=== PATIENT | female | born 1990 | race Caucasian/White ===

== ENCOUNTER 2018-05-02 10:06 | Inpatient (IN) ==
[2018-05-02] MEDS ORDERED: CEFAZOLIN PREMIX (MC ONLY) 2 GM/50 ML BAG IV ONE (10:25)
[2018-05-02] MEDS ORDERED: FAMOTIDINE PB 20 MG/50 ML BAG IV ONE (10:25)
[2018-05-02] MEDS ORDERED: CITRIC ACID/SODIUM CITRATE 30ml PO ONE (10:25)
[2018-05-02] MEDS ORDERED: LR 1,000 ML IV SCH (10:30)
[2018-05-02 10:52] VITALS: BMI 29.9
--- OUTSIDE RECORDS SUMMARY | 2018-05-02 10:57 | External Medical Summary | Continuity of Care Document ---
:1990 Author Organization [facility] Address [address] [place] [address] [phone] Phone Allergies, Adverse Reactions, Alerts Substance Reaction Severity Status amoxicillin Hives Unknown Active CETIRIZINE HCL Hives Unknown Active Penicillins Hives Unknown Active Medications Medication Instructions Dosage Effective Dates Status Comments (start - stop) 27 mg-0.8 take 1 tablet by Not Available - Active mg tablet oral route every day Problems Condition Effective Dates (start - stop) Clinical Status Supervision of other high risk - pregnancies, third trimester Previous Low Transverse - 34 weeks gestation of - Supervision of other high risk - pregnancies, second trimester Previous Low Transverse - 20 weeks gestation of - Supervision of other high risk - pregnancies, second trimester Previous Low Transverse - 24 weeks gestation of - Supervision of other high risk - pregnancies, second trimester Previous Low Transverse - Other general symptoms and signs - 18 weeks gestation of - Supervision of other high risk - pregnancies, second trimester Other general symptoms and signs - 17 weeks gestation of - Supervision of other high risk - pregnancies, second trimester Previous Low Transverse - 18 weeks gestation of - Supervision of other high risk - pregnancies, second trimester Previous Low Transverse - Maternal care for excess growth, - second tri, unsp 16 weeks gestation of - Supervision of other high risk - pregnancies, third trimester Previous Low Transverse - 36 weeks gestation of - Supervision of other high risk - pregnancies, third trimester Previous Low Transverse - 32 weeks gestation of - Supervision of other high risk - pregnancies, third trimester Previous Low Transverse - 28 weeks gestation of - Previous Low Transverse - Encounter for suprvsn of normal - , third trimester 30 weeks gestation of - Previous Low Transverse - Matern care for oth or susp poor fetl - grth, third tri, unsp 28 weeks gestation of - Previous Low Transverse - Maternal care for excess growth, - second tri, unsp 20 weeks gestation of - Matern care for oth or susp poor fetl - grth, third tri, unsp 32 weeks gestation of - Placental Problem, NEC, Antepartum - Active Procedures Procedure Date Immuniz admnin, 1 vac, sngl/combo 19 Yrs + TDAP VACCINE >7 IM OB Visit No Charge Results Test Name Date and Time Measure Units Reference Range Abnormal Flag Comments Unknown Advance Directives Directive Yes / No Effective Date File Name Unknown Encounters Encounter Practice Location Reason(s) Diagnoses Date Provider Care Team Description For Visit Members [facility] Supervision of Jayne Referring In Womens other high risk 3-201 Pari. Provider: Health PA, pregnancies, 8 [address] [facility], 1522, trimesterPrevious Center [address] Transverse [place], C-Naxtygc94 weeks 120, [place], [id number], gestation of ROBYN [place], [place], [id number]. tel:[phone] tel: , [place]. [id number] tel: [phone] Pawel [place] Supervision of Kaleb-0 Jayne Referring In Womens other high risk 9-201 Pari. Provider: Shabana SMITH, pregnancies, 8 700 Pari [address] third Medical Jayne L, 1522, trimesterPrevious Center [address] [place], Low Transverse [facility] [place], C-Voaovet11 weeks 120, [place] [id number], gestation of [facility] 120, [place], [place], tel:[phone] [place], , [place]. [id number]. tel: tel: [phone] Pawel [place] Supervision of Jw-2 Jayne Referring In Womens other high risk 5-201 Pari. Provider: Shabana SMITH, pregnancies, 8 [address] third Medical [place], 1522, trimesterPrevious Center [address] [place], Low Transverse [place], C-Iyhmugo75 weeks 120, [place], [id number], gestation of [place], [place], [place], [id number]. tel:[phone] tel: , [place]. 0277802 tel: [phone] Pawel [place] Matern care for Jw-2 Jayne Referring In Womens Ultrasound oth or susp poor 5-201 Pari. Provider: Shabana SMITH, fetl gr, third 8 700 [address] PO Box tri, unsp32 weeks Medical [facility], 1522, gestation of Center [address] [place], [place], [place], 120, [place], [id number], [place], [place], [place], [id number]. tel: [phone] tel: , [place]. 7418938 tel: [phone] Pawel [place] Previous Low Jw-1 Jayne Referring In Womens Transverse 3-201 Pari. Provider: Shabana SMITH, C-SectionEncounte 8 700 Se PO Box r for suprvsn of [facility] M, 1522, normal , Center [address] [place], third [id number] [place], weeks gestation 120, [place], [id number], of [place], [place], [id number]. tel: tel: , [place]. 9714670 tel: [phone] [facility] Previous Low May-3 Jayne Referring In Womens Transverse 1-201 Pari. Provider: Health LUIS, C-SectionMatern 8 700 Se PO Box care for oth or Medical Rodriguez M, 1522, susp poor fetl Center [address] [place], third tri, [place], unsp28 weeks 120, [place], [id number], gestation of [place], [place], [id number]. tel: tel: , [place]. 4465950 tel: [phone] Pawel [place] Supervision of January-3 Jayne Referring In Womens Ultrasound other high risk 1-201 Pari. Provider: Health PA, pregnancies, 8 700 [address] PO Box third Medical [place] M, 1522, trimesterPrevious Center [address] [place], Low Transverse [place], C-Nyemfdg22 weeks 120, [place], [id number], gestation of [place], [place], [id number]. tel:[phone] tel: , [place]. 9184726 tel: [phone] Pawel [place] Supervision of May-0 Jayne Referring In Womens other high risk 3-201 Pari. Provider: Health PA, pregnancies, 8 700 Se PO Box second Medical [place] M, 1522, trimesterPrevious Center [address] [place], Low Transverse [place], C-Dwdfrnr08 weeks 120, [place], [id number], gestation of [place], [place], [id number]. tel:[phone] tel:+ , [place]. 8110040 tel: [phone] Pawel [place] Supervision of Apr-0 Jayne Referring In Womens other high risk 5-201 Pari. Provider: Health LUIS, pregnancies, 8 700 Se PO Box second [place] Rodriguez M, 1522, trimesterPrevious Center [address] Low Transverse [place], C-Ryfbfsg34 weeks 120, [place], [id number], gestation of [place], [place], [id number]. tel:[phone] tel: , [place]. 6010784 tel: [phone] [facility] Previous Low Apr-0 Cueva Referring In Womens Ultrasound Transverse 5-201 Deborah. Provider: Health LUIS, C-SectionMaternal 8 700 Se PO Box care for excess [place] Rodriguez M, 1522, growth, Center [address] [facility], [place], unsp20 weeks 120, [place], [id number], gestation of [place], [place], [id number]. tel: tel: , [place]. 9096974 tel: [phone] Pawel [place] Supervision of Mar-2 Jayne Referring In Womens other high risk 3-201 Pari. Provider: Health PA, pregnancies, 8 700 Se PO Box second [place] Rodriguez M, 1522, trimesterPrevious Center [address] Low Transverse [place], C-SectionOther 120, [place], [id number], general symptoms [place], [place], [place] and signs18 weeks [place], [id number]. tel: gestation of [phone] tel: , [place]. 1687896 tel: [phone] Pawel [place] Supervision of Mar-1 Jayne Referring In Womens other high risk 9-201 Pari. Provider: Health PA, pregnancies, 8 700 Se PO Box stephon Rodriguez M, 1522, trimesterPrevious Center [address] Low Transverse [place], C-Slaxklj76 weeks 120, [place], [id number], gestation of [place], [place], [id number]. tel: tel: , [place]. 4382846 tel: [phone] Pawel [place] Supervision of Nov- Jayne Referring In Womens other high risk 5-201 Pari. Provider: Health PA, pregnancies, 8 700 Se PO Box second Medical Rodriguez M, 1522, trimesterOther Center [address] [place], general symptoms [place], and signs17 weeks 120, [place], [id number], gestation of [place], [place], [id number]. tel: [phone] tel: , [place]. 4213809 tel: [phone] Pawel [place] Supervision of Mar-0 Jayne Referring In Womens other high risk 7-201 Pari. Provider: Health PA, pregnancies, 8 700 Se PO Box second Medical Rodriguez M, 1522, trimesterPrevious Center [address] [place], Low Transverse [place], C-SectionMaternal 120, [place], [id number], care for excess [place], [place], [place], [id number]. tel: second tri, [phone] tel: unsp16 weeks , [place]. 3674126 gestation of tel: [phone] Pawel [place] Jun-0 Jacklyn In Womens 7-201 Karley. Health LUIS, 3 700 PO [facility] [address], Ste [place], 120, [id number], [place], [place], tel:[phone] , [place]. tel: [phone] Pawel [place] Apr- Jayne In Womens 3-201 Pari. Health LUIS, 2 700 PO Box Medical [address], [address], Ste [place], 120, [id number], [place], [place], tel:[phone] , [place]. tel: [phone] Family History Family Member Diagnosis Age At Onset Maternal Grandfather Epilepsy Paternal Grandmother Diabetes mellitus Father Bipolar Disorder Sister Bipolar Disorder Paternal Grandmother Cancer, breast Immunizations Vaccine Date Status Comments Tdap completed Source: New Immunization Record Payers Payer name Insurance type Covered green party ID Authorization(s) [employer] - Medicaid [place] [id number] [employer] - Medicaid [place] [id number] Social History Type Description Quantity Date Captured Alcohol Use Details No Caffeine Use Details Unknown Tobacco Use Status Smoking Status Former smoker Vital Signs Date / Height Weight BMI Pulse Blood Temperature Respiratory Body Head BMI Time: Rate Pressure Rate Surface Circumference percentile Area 28.4 -2017 5 9:44 kg/m AM eter (2) 153.20 28.9 115/70 2018 lbs 4 mm[Hg] 9:59 kg/m AM eter (2) Chief Complaint And Reason For Visit Unknown Chief Complaint And Reason For Visit Reason For Referral Reason For Referral Unknown Plan Of Care Date Type Action Status Appointment Lisy Clarke BOOKED Appointment Lisy Clarke - [facility] [place] - RC/S BOOKED Future Order: Radiology Order Ultrasound OB Follow-up ([id number]) Ordered Future Order: Radiology Order Complete OB Ultrasound > 14 Weeks Ordered ([id number]) Future Order: Radiology Order Ultrasound OB Follow-up ([id number]) Ordered Date Type Problem Goal Intervention Status Start Date Unknown. History Of Present Illness Encounter Date Complaint History Of Present Illness This patient has no known history of present illness Functional Status Encounter Date Functional Assessment Cognitive Assessment Unknown Medications Administered Medication Instructions Dosage Effective Dates (start - stop) Status Comments Drug Treatment Unknown Instructions Date Instruction Additional Information Unknown
--- OUTSIDE RECORDS SUMMARY | 2018-05-02 10:57 | External Medical Summary | Continuity of Care Document ---
:1990 Author Organization [facility] Address [address] [place] [address] [phone] Phone Allergies, Adverse Reactions, Alerts Substance Reaction [...] Transverse - 28 weeks gestation of - Supervision of other high risk - pregnancies, third trimester Previous Low Transverse - 34 weeks gestation of - Previous Low Transverse [...] NEC, Antepartum - Active Procedures Procedure Date OB Visit No Charge Infct antign, chlamydia trac, ampl Neisseria Gonorrhea, Amplified DNA Results Test Name Date and Time Measure Units Reference Range Abnormal Flag Comments Panel Description: ABO Grouping and Rho(D) Typing ABO Grouping 13:31:00 B Rh Factor 13:31:00 Positive Please note: Prior records for this patient's ABO / Rh type are notavailable for additional verification. Panel Description: Rubella virus IgG Ab [Units/volume] in Serum or Plasma by Immunoassay Rubella Antibodies, 13:31:00 3.18 index Immune >0.99 IgG Non-immune <0.90 Equivocal 0.90 - 0.99 Immune >0.99 Panel Description: RPR, Rfx Qn RPR/Confirm TP RPR 13:31:00 Non Reactive Non Reactive Panel Description: Blood group antibody screen [Presence] in Serum or Plasma Antibody Screen 13:31:00 Negative Negative Panel Description: HBsAg Screen HBsAg Screen 13:31:00 Negative Negative Panel Description: Bacteria identified in Urine by Culture Urine Culture, 13:31:00 Final report Routine Result 1 13:31:00 Comment Culture shows less than 10,000 colony forming units of bacteria permilliliter of urine. This colony count is not generally consideredto be clinically significant. Panel Description: GC/CT Amplified Probe Chlamydia Trachomatis RNA, [facility] 13:31:46 Negative Negative N Neisseria Gonorrhoeae RNA, [facility] 13:31:46 Negative Negative N Advance Directives Directive Yes / No Effective Date File Name Unknown Encounters Encounter Practice Location Reason(s) Diagnoses Date Provider Care Team Description For Visit Members Pawel [place] Supervision of Jayne Referring In Womens other high risk 9-201 Pari. Provider: Shabana SMITH, pregnancies, 8 700 Pari PO Box [facility] L, 1522, trimesterPrevious Center [address] [facility] Frieda [place], C-Mgbvskq52 weeks 120, [place] , gestation of [facility] 120, [place], [place], tel: [phone] [place], , [place]. [id number]. tel: tel: [phone] Pawel [place] Supervision of Jayne Referring In Womens other high risk 5-201 Pari. Provider: Shabana SMITH, pregnancies, 8 [address] [facility] , 1522, trimesterPrevious Center [address], [address] [place], C-Cixdhve84 weeks 120, [place], [id number], gestation of [place], [place], [place], [id number]. tel: [phone] tel: , [place]. 3174551 tel: [phone] Pawel [place] Matern care for Jayne Referring In Womens Ultrasound oth or susp poor 5-201 Pari. Provider: Shabana SMITH, fetl gr, third 8 700 [address] PO Box tri, unsp32 weeks [facility], 1522, gestation of Center [address] [place], [place], 120, [place], [id number], [place], [place], [id number]. tel: tel: , [place]. 5738858 tel: [phone] [facility] Previous Low Jw-1 Jayne Referring In Womens Transverse 3-201 Pari. Provider: Health LUIS, C-SectionEncounte 8 700 Se PO Box r for suprvsn of Medical Rodriguez M, 1522, normal , Center [address] [place], third [id number] [place], weeks gestation 120, [place], [id number], of [place], [place], [place], [id number]. tel: tel: , [place]. 1003153 tel: [phone] [facility] Previous Low January-3 Jayne Referring In Womens Transverse 1-201 Pari. Provider: Health LUIS, C-SectionMatern 8 700 Se PO Box care for oth or Medical Rodriguez M, 1522, susp poor fetl Center [address] [facility], third tri, [place], unsp28 weeks 120, [place], [id number], gestation of [place], [place], [id number]. tel:[phone] tel: , [place]. 9053383 tel: [phone] Pawel [place] Supervision of January-3 Jayne Referring In Womens Ultrasound other high risk 1-201 Pari. Provider: Health PA, pregnancies, 8 700 Se PO Box third Medical Rodriguez M, 1522, trimesterPrevious Center [address] [place], Low Transverse [place], C-Unmttnw24 weeks 120, [place], [id number], gestation of [place], [place], [id number]. tel:[phone] tel: , [place]. 2793244 tel: [phone] Pawel [place] Supervision of May-0 Jayne Referring In Womens other high risk 3-201 Pari. Provider: Health PA, pregnancies, 8 700 [address] PO Box second Medical Rodriguez M, 1522, trimesterPrevious Center [address] Transverse [place], C-Iptehkm67 weeks 120, [place], [id number], gestation of [place], [place], [place], [id number]. tel:[phone] tel: , [place]. 4418133 tel: [phone] Pawel [place] Supervision of Apr-0 Jayne Referring In Womens other high risk 5-201 Pari. Provider: Health PA, pregnancies, 8 700 Se PO Box second Medical Rodriguez M, 1522, trimesterPrevious Center [address] Transverse [place], C-Bnzqlhe49 weeks 120, [place], [id number], gestation of [place], [place], [place], [id number]. tel: tel: , [place]. 4368613 tel: [phone] Pawel [place] Previous Justin Apr-0 Cueva Referring In Womens Ultrasound Transverse 5-201 Deborah. Provider: Health LUIS, C-SectionMaternal 8 700 Se PO Box care for excess Medical Rodriguez M, 1522, growth, Center [address] [place], stephon tri, [place], unsp20 weeks 120, [place], [id number], gestation of [place], [place], [place], [id number]. tel: tel: , [place]. 3776977 tel: [phone] Pawel [place] Supervision of Mar-2 Jayne Referring In Womens other high risk 3-201 Pari. Provider: Health PA, pregnancies, 8 700 Se PO Box second [facility] M, 1522, trimesterPrevious Center [address] Low Transverse [place], C-SectionOther 120, [place], [id number], general symptoms [place], [place], [place] and signs18 weeks [place], [id number]. tel: gestation of [id number] tel: , [place]. 5742992 tel:[phone] Pawel [place] Supervision of Mar-1 Jayne Referring In Womens other high risk 9-201 Pari. Provider: Health PA, pregnancies, 8 700 Se PO Box [facility] M, 1522, trimesterPrevious Center [address] [place], Low Transverse [place], C-Obnalaq72 weeks 120, [place], [id number], gestation of [place], [place], [id number]. tel: tel: , [place]. 9895525 tel:[phone] Pawel [place] Supervision of Mar-1 Jayne Referring In Womens other high risk 5-201 Pari. Provider: Health PA, pregnancies, 8 700 Se PO Box [facility], 1522, trimesterOther Center [address] [place], general symptoms [place], and signs17 weeks 120, [place], [id number], gestation of [place], [place], [id number]. tel: tel: , US. 6080064 tel: [phone] Pawel [place] Supervision of Mar-0 Jayne Referring In Womens other high risk 7-201 Pari. Provider: Health PA, pregnancies, 8 700 Se PO Box [facility], 1522, trimesterPrevious Center [address] [place], Low Transverse [place], C-SectionMaternal 120, [place], [id number], care for excess [place], [place], [place], [place], [id number]. tel: second tri, [phone] tel: unsp16 weeks , US. 4277495 gestation of tel: [phone] [facility] Oct-0 Jacklyn In Womens 7-201 Karley. Health PA, 3 700 PO [facility] [address], [address] [place], 120, [id number], [place], [place], tel:901 , [place]. tel: [phone] Pawel [place] Jayne In [facility] 3-201 [facility], 2 700 PO [facility] [address], [place] [address] Jennifer, [facility] [place], 120, [id number], [place], [place], tel:[phone] , [place]. tel: [phone] Family History Family Member Diagnosis Age At Onset Maternal Grandfather Epilepsy Paternal Grandmother Diabetes mellitus Father Bipolar Disorder Sister Bipolar Disorder Paternal Grandmother Cancer, breast Immunizations Vaccine Date Status Comments Tdap completed Source: New Immunization Record Payers Payer name Insurance type Covered democrat ID Authorization(s) [employer] - Medicaid [place] [id number] [employer] - Medicaid [place] [id number] Social History Type Description Quantity Date Captured Alcohol Use Details No Caffeine Use Details Unknown Tobacco Use Status Smoking Status Former smoker Vital Signs Date / Height Weight BMI Pulse Blood Temperature Respiratory Body Head BMI Time: Rate Pressure Rate Surface Circumference percentile Area 150.60 28.4 lbs 5 mm[Hg] 1:15 kg/m PM eter (2) Chief Complaint And Reason For Visit Unknown Chief Complaint And Reason For Visit Reason For Referral Reason For Referral Unknown Plan Of Care Date Type Action Status Appointment Lisy Clarke BOOKED Appointment Lisy Clarke - [facility] [place] - RC/S BOOKED Future Order: Radiology Order Ultrasound OB Follow-up ([id number]) Ordered Future Order: Radiology Order Complete OB Ultrasound > 14 Weeks Ordered ([id number]) Future Order: Radiology Order Ultrasound OB Follow-up ([id number]) Ordered Date Type Problem Goal Intervention Status [...]
--- OUTSIDE RECORDS SUMMARY | 2018-05-02 10:57 | External Medical Summary ---
:1990 Author Organization [facility] Address [address] [place] [address] Care Team Providers Name Role Phone STEFANY ASH Unavailable Unavailable PROBLEMS Unknown Problems ALLERGIES Substance Reaction Event Type Date Status Sulfacet-R Unknown Drug Allergy Aug, Active Penicillin G Benzathine Unknown Drug Allergy Aug, Active Amoxicillin Unknown Drug Allergy Aug, Active zyrtec Unknown Non Drug Allergy Aug, Active ENCOUNTERS Encounter Location Date Diagnosis [facility] [address] Sep, Possible Z32.00 CLINIC [id number] [place] [address] [facility] [address] Aug, Dental caries on smooth CLINIC [id number] surface penetrating into [place], [place] pulp K02.63 [id number] [facility] [address] 27 Jul, 2017 Dental caries on smooth CLINIC [id number] surface penetrating into [place], [place] pulp K02.63 [id number] [facility] [address] 17 Jul, 2017 Dental examination Z01.20 CLINIC [id number] [address] IMMUNIZATIONS No Known Immunizations SOCIAL HISTORY Never Assessed REASON FOR VISIT TE PLAN OF CARE Activity Details Follow Up MUNDO/prophy Reason: VITAL SIGNS Heart Rate 86 bpm 2017-08-31 Blood pressure systolic 114 mmHg 2017-08-31 Blood pressure diastolic 81 mmHg 2017-08-31 MEDICATIONS Medication Instructions Dosage Frequency Start End Duration Status Date Date Lucile 7.5-325 Orally with food 1 tablet as 6h 3 days Not-Takin MG every 6 hrs needed for g pain Lucile 7.5-325 Orally with food 1 tablet as 6h 3 days Active MG every 6 hrs needed for pain Lucile 7.5-325 Orally every 4-6 1 tablet Not-Takin MG hours as needed g Cephalexin 500 Orally every 12 1 tablet 12h Not-Takin MG hrs g Clindamycin HCl Orally every 8 1 capsules 8h 10 days Not-Takin 150 MG hrs g Ibuprofen 200 Orally Three 1 tablet 8h Not-Takin MG times a day with food g or milk as needed RESULTS No Results PROCEDURES Procedure Date Ordered Result Body Site EXTRAC ERUPTED TOOTH/EXPOSED ROOT Aug 31, 2017 EXTRAC ERUPTED TOOTH/EXPOSED ROOT Aug 31, 2017 INSTRUCTIONS MEDICATIONS ADMINISTERED No Known Medications
--- OUTSIDE RECORDS SUMMARY | 2018-05-02 10:57 | External Medical Summary | Continuity of Care Document ---
:1990 Author Organization [facility] Address [address] [place], [place] [id number] Phone Allergies, Adverse Reactions, Alerts Substance Reaction Severity Status amoxicillin Hives Unknown Active CETIRIZINE HCL Hives Unknown Active Penicillins Hives Unknown Active Medications Medication Instructions Dosage Effective Dates Status Comments (start - stop) 27 mg-0.8 take 1 tablet by Not Available - Active mg tablet oral route every day Problems Condition Effective Dates (start - stop) Clinical Status Matern care for oth or susp poor fetl - grth, third tri, unsp 32 weeks gestation of - Supervision of [...] pregnancies, third trimester Previous Low Transverse - 38 weeks gestation of - Supervision of other high risk - pregnancies, third trimester Previous Low Transverse - 28 weeks gestation of - Supervision of other high risk - pregnancies, third trimester Previous Low Transverse - 34 weeks gestation of - Previous Low Transverse - 37 weeks gestation of - Previous Low Transverse - Encounter for suprvsn of normal - , third trimester 30 weeks gestation of - Previous Low Transverse - Matern care for oth or susp poor fetl - grth, third tri, unsp 28 weeks gestation of - Previous Low Transverse - Maternal care for excess growth, - second tri, unsp 20 weeks gestation of - Placental Problem, NEC, Antepartum - Active Procedures Procedure Date Ultrasnd preg uterus, flwup/repeat Results Test Name Date and Time Measure Units Reference Range Abnormal Flag Comments Unknown Advance Directives Directive Yes / No Effective Date File Name Unknown Encounters Encounter Practice Location Reason(s) Diagnoses Date Provider Care Team Description For Visit Members Pawel Mathur Supervision of Jayne Referring In Womens other high risk 6-201 Pari. Provider: Health PA, pregnancies, [address] third Medical Rodriguez M, 1522, trimesterPrevious Center [address], [place], C-Jqhrjcx09 weeks 120, [place], [id number], gestation of [place], [place], [place], [id number]. tel:[phone] tel: , [place]. 0578257 tel: [phone] Pawel Mathur Previous Low Mar-3 Rizo Referring In Womens Transverse 0-201 Pavithra. Provider: Health LUIS, C-Nzirnyu91 weeks 8 [address] PO Box gestation of [facility] M, 1522, Center [address] Jennifer, [place], [place], 120, [place], [id number], [place], [place], [id number]. tel: [phone] tel: , [place]. [id number] tel: [phone] Pawel Mathur Supervision of Mar-2 Jayne Referring In Womens other high risk 3-201 Pari. Provider: Health PA, pregnancies, 8 [address] PO Box [facility] M, 1522, trimesterPrevious Center [address] [place], Low Transverse [place], [place], C-Rgzwceg00 weeks 120, [place], [id number], gestation of [place], [place], [place], [id number]. tel:[phone] tel: , [place]. [id number] tel: [phone] Pawel Mathur Supervision of Kaleb-0 Jayne Referring In Womens other high risk 9-201 Pari. Provider: Health PA, pregnancies, 8 700 Pari PO Box [facility] L, 1522, trimesterPrevious Center [address] [place], Low Transverse [facility], C-Gtlwunt51 weeks 120, Center [id number], gestation of [facility] 120, [place], [place], tel:[phone] [place], , [place]. [id number]. tel: tel: [phone] Associates [facility] Supervision of Jw-2 Jayne Referring In Womens other high risk 5-201 Pari. Provider: Health PA, pregnancies, 8 [address] PO Box [facility] M, 1522, trimesterPrevious Center [address] [place], Low Transverse [place], C-Odsseeg85 weeks 120, [place], [id number], gestation of [place], [place], [id number]. tel: tel: , [place]. 1707547 tel: [phone] Pawel Mathur Matern care for Jw-2 Jayne Referring In Womens Ultrasound oth or susp poor 5-201 Pari. Provider: Health LUIS, fetl thee, third 8 [address] PO Box tri, unsp32 weeks Medical Rodriguez M, 1522, gestation of Center [address] [place], [place], 120, [place], [id number], [place], [id number]. tel: tel: , [place]. 5446423 tel: [phone] Pawel Mathur Previous Low Jw-1 Jayne Referring In Womens Transverse 3-201 Pari. Provider: Shabana SMITH C-SectionEncounte 8 700 Se PO Box r for suprvsn of Medical Byron M, 1522, normal , Center [address] [place], third oxlqtszci00 [place], weeks gestation 120, [place], [id number], of [place], [place], [place], [id number]. tel:[phone] tel: , [place]. 8690341 tel: [phone] Pawel Mathur Previous Low January-3 Jayne Referring In Womens Transverse 1-201 Pari. Provider: Shabana SMITH C-SectionMatern 8 700 Se PO Box care for oth or Medical Rodriguez M, 1522, susp poor fetl Center [address], third tri, [place], unsp28 weeks 120, [place], [id number], gestation of [place], [place], [id number]. tel:[phone] tel: , US. [id number] tel: [phone] Pawel Mathur Supervision of January-3 Jayne Referring In Womens Ultrasound other high risk 1-201 Pari. Provider: Health PA, pregnancies, 8 700 [address] PO Box third Medical Michael M, 1522, trimesterPrevious Center [address] Low Transverse [place], C-Ijsnypt33 weeks 120, [place], [id number], gestation of [place], [place], [id number]. tel:[phone] tel: , [place]. [id number] tel: [phone] Pawel Mathur Supervision of May-0 Jayne Referring In Womens other high risk 3-201 Pari. Provider: Shabana PA, pregnancies, 8 [address] Box second Frieda Calles, 1522, trimesterPrevious Center [address] Low Transverse [place], C-Pjmaliu57 weeks 120, [place], [id number], gestation of [place], [place], [id number]. tel:[phone] tel: , [place]. [id number] tel: [phone] Pawel Mathur Supervision of Apr-0 Jayne Referring In Womens other high risk 5-201 Pari. Provider: Shabana SMITH, pregnancies, 8 700 [address] PO Box second Frieda Rodriguez M, 1522, trimesterPrevious Center [address] Low Transverse [place], C-Oihknwp12 weeks 120, [place], [id number], [place], [id number]. tel: tel: , [place]. 6658796 tel: [phone] Pawel Mathur Previous Low Apr-0 Cueva Referring In Womens Ultrasound Transverse 5-201 Deborah. Provider: Health LUIS, C-SectionMaternal 8 700 Se PO Box care for excess Medical Michael M, 1522, growth, Center [address] [place], stephon tri, [place], unsp20 weeks 120, [place], [id number], gestation of [place], [place], [id number]. tel:[phone] tel: , [place]. 1327812 tel: [phone] Pawel Mathur Supervision of Mar-2 Jayne Referring In Womens other high risk 3-201 Pari. Provider: Health PA, pregnancies, 8 700 Se PO Box second Medical Rodriguez M, 1522, trimesterPrevious Center [address] Transverse [place], C-SectionOther 120, [place], [id number], general symptoms ROB[place], [place] and signs18 weeks [place], [id number]. tel: gestation of [phone] tel: , US. 4303089 tel: [phone] Pawel Mathur Supervision of Mar-1 Jayne Referring In Womens other high risk 9-201 Pari. Provider: Health PA, pregnancies, 8 700 Se PO Box second [facility] M, 1522, trimesterPrevious Center [address] Transverse [place], C-Uqevepk17 weeks 120, [place], [id number], gestation of [place], [place], [id number]. tel:[phone] tel: , US. 4645640 tel: [phone] Pawel Mathur Supervision of Mar-1 Jayne Referring In Womens other high risk 5-201 Pari. Provider: Health PA, pregnancies, 8 700 Se PO [facility], trimesterOther Center [address] [place], general symptoms [place], and signs17 weeks 120, [place], [id number], gestation of ROBYN [place], [place], [id number]. tel:[phone] tel: , US. 6027421 tel: [phone] Pawel Mathur Supervision of Mar-0 Jayne Referring In Womens other high risk 7-201 Pari. Provider: Health PA, pregnancies, 8 700 Se PO Box second Medical Rodriguez M, 1522, trimesterPrevious Center [address] Transverse [place], C-SectionMaternal 120, [place], [id number], care for excess [place], [place], [place], [place], [id number]. tel: second tri, [phone] tel: unsp16 weeks , [place]. [id number] gestation of tel: [phone] [facility] Jun-0 Jacklyn In Womens 7-201 Karley. [facility], 3 700 PO [facility] [address] Jennifer, [place], 120, [id number], [facility] [place], tel:[phone] , [place]. tel: [phone] Pawel Mathur Apr- Jayne In Womens 3-201 Pari. [facility], 2 700 PO Box Medical [address] Jennifer, [place], 120, [id number], [facility] [place], tel:[phone] , [place]. tel: [phone] Family History Family Member Diagnosis Age At Onset Maternal Grandfather Epilepsy Paternal Grandmother Diabetes mellitus Father Bipolar Disorder Sister Bipolar Disorder Paternal Grandmother Cancer, breast Immunizations Vaccine Date Status Comments Tdap completed Source: New Immunization Record Payers Payer name Insurance type Covered green party ID Authorization(s) [employer] - Medicaid [place] [id number] [employer] - Medicaid [place] [id number] Social History Type Description Quantity Date Captured Unknown Vital Signs Date / Height Weight BMI Pulse Blood Temperature Respiratory Body Head BMI Time: Rate Pressure Rate Surface Circumference percentile Area Unknown Chief Complaint And Reason For Visit Unknown Chief Complaint And Reason For Visit Reason For Referral Reason For Referral Unknown Plan Of Care Date Type Action Status Appointment Lisy Clarke - [facility] [place]OOK[place] Appointment Lisy Clarke BOOKED Future Order: Radiology Order Ultrasound OB Follow-up ([id number]) Ordered Future Order: Radiology Order Ultrasound OB Follow-up ([id number]) Ordered Future Order: Radiology Order Complete OB Ultrasound > 14 Weeks Ordered ([id number]) Date Type Problem Goal Intervention Status Start [...]
--- OUTSIDE RECORDS SUMMARY | 2018-05-02 10:57 | External Medical Summary ---
:1990 Author Organization [facility] Address [address] [place] [address] Care Team Providers Name Role Phone STEFANY ASH Unavailable Unavailable PROBLEMS Unknown Problems ALLERGIES Substance Reaction Event Type Date Status Sulfacet-R Unknown Drug Allergy Jul, Active Penicillin G Benzathine Unknown Drug Allergy Jul, Active Amoxicillin Unknown Drug Allergy Jul, Active zyrtec Unknown Non Drug Allergy Jul, Active ENCOUNTERS Encounter Location Date Diagnosis [facility] [address] 11 Sep, 2017 Possible Z32.00 CLINIC [id number] [address] [facility] [address] Aug, Dental caries on smooth CLINIC [id number] surface penetrating into [place], [place] pulp K02.63 [address] [facility] [address] 27 Jul, 2017 Dental caries on smooth CLINIC [id number] surface penetrating into [place], [place] pulp K02.63 [address] [facility] [address] 17 Jul, 2017 Dental examination Z01.20 CLINIC [id number] [place] [address] IMMUNIZATIONS No Known Immunizations SOCIAL HISTORY Never Assessed REASON FOR VISIT TE PLAN OF CARE Activity Details Follow Up Multi TE 45 mins Reason: VITAL SIGNS Heart Rate 96 bpm 2017-08-16 Blood pressure systolic 101 mmHg 2017-08-16 Blood pressure diastolic 69 mmHg 2017-08-16 MEDICATIONS Medication Instructions Dosage Frequency Start End Duration Status Date Date Sherman 7.5-325 Orally with food 1 tablet as 6h 3 days Active MG every 6 hrs needed for pain Clindamycin HCl Orally every 8 1 capsules 8h 10 days Not-Takin 150 MG hrs g Sherman 7.5-325 Orally every 4-6 1 tablet Not-Takin MG hours as needed g Cephalexin 500 Orally every 12 1 tablet 12h Not-Takin MG hrs g Ibuprofen 200 Orally Three 1 tablet 8h Not-Takin MG times a day with food g or milk as needed RESULTS No Results PROCEDURES Procedure Date Ordered Result Body Site EXTRAC ERUPTED TOOTH/EXPOSED ROOT Aug 16, 2017 INSTRUCTIONS MEDICATIONS ADMINISTERED No Known Medications
--- OUTSIDE RECORDS SUMMARY | 2018-05-02 10:57 | External Medical Summary | Continuity of Care Document ---
:1990 Author Organization [facility] Address [address] [place] [phone] Phone Allergies, Adverse Reactions, Alerts Substance Reaction [...] tri, unsp 16 weeks gestation of - Previous Low Transverse [...] Team Description For Visit Members Pawel Mathur Previous Low Jayne Referring In Womens Transverse 3-201 Pari. Provider: Shabana SMITH C-SectionEncounte 8 700 Se PO Box r for suprvsn of Medical Michael M, 1522, normal , Center [address] [place], third xozmicrdq68 [place], weeks gestation 120, [facility] [place], [id number], of [place], [place], [place], [id number]. tel: [phone] tel: , . [id number] tel: [phone] Pawel Mathur Previous Low January- Jayne Referring In Womens Transverse 1-201 Pari. Provider: Barry Dalal-SectionMatern 8 700 Se PO Box care for oth or Medical Rodriguez M, 1522, susp poor fetl Center [address] [place], [facility], third tri, [place], unsp28 weeks 120, [facility] [place], [id number], gestation of [place], [place], [place], [id number]. tel: [phone] tel: , . [id number] tel: [phone] Pawel Mathur Supervision of January-3 Jayne Referring In Womens Ultrasound other high risk 1-201 Pari. Provider: Health PA, pregnancies, 8 700 Se PO Box third Frieda Rodriguez M, 1522, trimesterPrevious Center [address] Low Transverse [place], C-Tcgbyle60 weeks 120, [facility] [place], [id number], gestation of [place], [place], [id number]. tel:[phone] tel: , [place]. 9829195 tel: [phone] Pawel Mathur Supervision of May-0 Jayne Referring In Womens other high risk 3-201 Pari. Provider: Health PA, pregnancies, 8 700 [address] PO Box second Frieda Calles, 1522, trimesterPrevious Center [address] [place], Low Transverse [place], C-Qtbckbs19 weeks 120, [facility] [place], [id number], gestation of [place], [place], [id number]. tel: tel: , [place]. 9199172 tel: [phone] Pawel Mathur Supervision of Apr-0 Jayne Referring In Womens other high risk 5-201 Pari. Provider: Shabana PA, pregnancies, 8 700 Se PO Box second Medical Michael M, 1522, trimesterPrevious Center [address] Low Transverse [place], C-Jqlqkha11 weeks 120, [facility] [place], [id number], gestation of [place], [place], [address]. tel: tel: , [place]. 2302886 tel: [phone] Pawel Mathur Previous Low Apr-0 Cueva Referring In Womens Ultrasound Transverse 5-201 Deborah. Provider: Health LUIS, C-SectionMaternal 8 700 Se PO Box care for excess Medical Michael M, 1522, growth, Center [address] [place], [address], [place], [place], unsp20 weeks 120, [facility] [place], [id number], gestation of [place], [place], [id number]. tel:[phone] tel: , [place]. 5098248 tel: [phone] Pawel Mathur Supervision of Mar-2 Jayne Referring In Womens other high risk 3-201 Pari. Provider: Health PA, pregnancies, 8 700 Se PO Box second Medical Rodriguez M, 1522, trimesterPrevious Center [address] Transverse [place], C-SectionOther 120, [facility] [place], [id number], general symptoms ROB[place], [place] and signs18 weeks [place], [id number]. tel: gestation of [id number] tel: , US. 7014323 tel: [phone] Pawel Mathur Supervision of Mar-1 Jayne Referring In Womens other high risk 9-201 Pari. Provider: Health PA, pregnancies, 8 700 Se PO Box second Medical Rodriguez M, 1522, trimesterPrevious Center [address], [place], [place], C-Zjkdgfm19 weeks 120, [facility] [place], [id number], gestation of [place], [place], [address]. tel:[phone] tel: , [place]. 1377135 tel: [phone] Pawel Mathur Supervision of Mar-1 Jayne Referring In Womens other high risk 5-201 Pari. Provider: Health PA, pregnancies, 8 700 [address] PO Box second Medical Rodriguez M, 1522, trimesterOther Center [address] [place], general symptoms [place], and signs17 weeks 120, [facility] [place], [id number], gestation of ROB[place], [place], [address]. tel:[phone] tel: , [place]. 5537113 tel: [phone] Pawel Mathur Supervision of Mar-0 Jayne Referring In Womens other high risk 7-201 Pari. Provider: Health PA, pregnancies, 8 700 Se PO Box second Medical Rodriguez M, 1522, trimesterPrevious Center [address] [place], Low Transverse [place], C-SectionMaternal 120, [facility] [place], [id number], care for excess [place], [place], [place], [place], [address]. tel: second tri, [id number] tel: unsp16 weeks , [place]. 9844420 gestation of tel: [phone] [facility] Jun-0 Jacklyn In Womens 7-201 Karley. [facility], 3 700 PO [facility] [address], [address] Jennifer, [facility] [place], 120, [id number], [facility] [place], tel:[phone] , [place]. tel: [phone] Associates [facility] Apr- Jayne In Womens 3-201 Pari. [facility], 2 700 PO [facility] [address], [address] Jennifer, [place], 120, [id number], [facility] [place], tel:[phone] , [place]. tel: [phone] Family History Family Member Diagnosis Age At Onset Maternal Grandfather Epilepsy Paternal Grandmother Diabetes mellitus Father Bipolar Disorder Sister Bipolar Disorder Paternal Grandmother Cancer, breast Immunizations Vaccine Date Status Comments Unknown Payers Payer name Insurance type Covered constitution party ID Authorization(s) [employer] - Medicaid MC [id number] Social History Type Description Quantity Date Captured [...] Appointment Lisy Clarke BOOKED Appointment Lisy Clarke BOOKED Appointment Lisy Clarke - [facility] [place] BOOK[place] Future Order: Radiology Order Ultrasound OB Follow-up ([id number]) Ordered Future Order: Radiology Order Complete OB Ultrasound > 14 Weeks Ordered ([id number]) Date Type Problem Goal Intervention Status Start [...]
--- OUTSIDE RECORDS SUMMARY | 2018-05-02 10:57 | External Medical Summary | Continuity of Care Document ---
:1990 Author Organization [facility] Address [address] [place] [phone] Phone Allergies, Adverse Reactions, Alerts Substance Reaction Severity Status amoxicillin Hives Unknown Active CETIRIZINE HCL Hives Unknown Active Penicillins Hives Unknown Active Medications Medication Instructions Dosage Effective Dates Status Comments (start - stop) ProAir HFA 90 inhale 2 puff by - Active mcg/actuation aerosol inhalation route inhaler every 4 - 6 hours as needed Mucinex D 60 mg-600 take 1 tablet by Not Available - Active mg tablet,extended oral route every release 12 hours as needed oseltamivir 75 mg take 1 capsule by 75 MG - Active capsule oral route 2 times every day 27 mg-0.8 mg take 1 tablet by Not Available - Active tablet oral route every day Tylenol 325 mg tablet take 3 tablet by 975 MG - Active ORAL route every 4 days as needed Zofran ODT 4 mg take 1 by Oral Not Available - Active disintegrating tablet route every 6 hours as needed for nausea Problems Condition Effective Dates (start - stop) [...] Procedures Procedure Date OB Visit No Charge Results Test Name Date and Time Measure Units Reference Range Abnormal Flag Comments Unknown Advance Directives Directive Yes / No Effective Date File Name Unknown Encounters Encounter Practice Location Reason(s) Diagnoses Date Provider Care Team Description For Visit Members Pawel Mathur Supervision of Dec-0 Jayne Referring In Womens other high risk 5-201 Pari. Provider: Shabana SMITH, pregnancies, 8 [address] Box second Medical Rodriguez M, 1522, trimesterPrevious Center [address] [place], Low Transverse [place], C-Virgawq11 weeks 120, [place], [id number], gestation of [place], [place], [place], [id number]. tel: [phone] tel: , [place]. 8023027 tel: [phone] Pawel Mathur Previous Low Apr-0 Cueva Referring In Womens Ultrasound Transverse 5-201 Deborah. Provider: Shabana SMITH, C-SectionMaternal 8 700 Se PO Box care for excess Medical Rodriguez M, 1522, growth, Center [address] [place], second leticia, [place], unsp20 weeks 120, [place], [id number], gestation of [place], [place], [place], [id number]. tel: [phone] tel: , [place]. 3901391 tel: [phone] Pawel Mathur Supervision of Nov- Jayne Referring In Womens other high risk 3-201 Pari. Provider: Shabana SMITH, pregnancies, 8 700 Se PO Box second Medical Rodriguez M, 1522, trimesterPrevious Center [address] Low Transverse [place], C-SectionOther 120, [place], [id number], general symptoms [place], [place] and signs18 weeks [place], [id number]. tel: gestation of [id number] tel: , [place]. 9530730 tel: [phone] Pawel Mathur Supervision of Mar-1 Jayne Referring In Womens other high risk 9-201 Pari. Provider: Health PA, pregnancies, 8 700 Se PO Box second Medical Rodriguez M, 1522, trimesterPrevious Center [address] [place], Low Transverse [place], C-Llsewvm78 weeks 120, [place], [id number], gestation of [place], [place], [id number]. tel:[phone] tel: , [place]. 9679809 tel: [phone] Pawel Mathur Mar-1 Jayne In Womens 5-201 Pari. Health PA, 8 700 PO [facility] [address], Center [place], [place], 120, [id number], [place], [place], tel:[phone] , [place]. tel: [phone] Pawel Mathur Supervision of Mar-1 Jayne Referring In Womens other high risk 5-201 Pari. Provider: Health PA, pregnancies, 8 700 Se PO Box second Medical [place] M, 1522, trimesterOther Center [address] [place], general symptoms [place], and signs17 weeks 120, [place], [id number], gestation of ROBYN [place], [place], [id number]. tel:[phone] tel: , [place]. 3287197 tel: [phone] Pawel Mathur Supervision of Mar-0 Jayne Referring In Womens other high risk 7-201 Pari. Provider: Health PA, pregnancies, 8 700 Se PO Box second Medical Rodriguez M, 1522, trimesterPrevious Center [address] Low Transverse [place], C-SectionMaternal 120, [place], [id number], care for excess [place], [place], [place], [place], [id number]. tel: second tri, [id number] tel: unsp16 weeks , [place]. 5489570 gestation of tel: [phone] [facility] Jun-0 Jacklyn In Womens 7-201 Karley. [facility], 3 700 [address] Medical [address] Jennifer, [place], 120, [id number], [facility] [place], tel:[phone] , [place]. tel: [phone] Associates [facility] Apr- Jayne In Womens 3-201 Pari. [facility], 2 700 [address] Box Medical [address] Jennifer, [place], 120, [id number], [facility] [place], tel: [phone] [address] , [place]. tel: [phone] Family History Family Member Diagnosis Age At Onset Maternal Grandfather Epilepsy Paternal Grandmother Diabetes mellitus Father Bipolar Disorder Sister Bipolar Disorder Paternal Grandmother Cancer, breast Immunizations Vaccine Date Status Comments Unknown Payers Payer name Insurance type Covered constitution party ID Authorization(s) [employer] - Medicaid MC [id number] Social History Type Description Quantity Date Captured Alcohol Use Details No Caffeine Use Details Unknown Tobacco Use Status Smoking Status Former smoker Vital Signs Date / Height Weight BMI Pulse Blood Temperature Respiratory Body Head BMI Time: Rate Pressure Rate Surface Circumference percentile Area 9 3:32 kg/m PM eter (2) 125.90 23.7 116/68 2018 lbs 9 mm[Hg] 3:38 kg/m PM eter (2) Chief Complaint And Reason For Visit Unknown Chief Complaint And Reason For Visit Reason For Referral Reason For Referral Unknown Plan Of Care Date Type Action Status Appointment Taryn Clarke BOOKED Future Order: Radiology Order Complete OB Ultrasound > 14 Weeks Ordered ([id number]) Date Type Problem Goal Intervention Status Start [...]
--- OUTSIDE RECORDS SUMMARY | 2018-05-02 10:57 | External Medical Summary ---
:1990 Author Organization [facility] Address [address] [place] [address] Care Team Providers Name Role Phone VAIBHAV ACUNA Unavailable Unavailable PROBLEMS Unknown Problems ALLERGIES No Information ENCOUNTERS Encounter Location Date Diagnosis [facility] [address] 11 Sep, 2017 Possible Z32.00 CLINIC [id number] [address] [facility] [address] 12 Aug, 2017 Dental caries on smooth CLINIC [id number] surface penetrating into [place], [place] pulp K02.63 [id number] [facility] [address] 27 Jul, 2017 Dental caries on smooth CLINIC [id number] surface penetrating into [place], [place] pulp K02.63 [id number] [facility] [address] 17 Jul, 2017 Dental examination Z01.20 CLINIC [id number], [place] [address] IMMUNIZATIONS No Known Immunizations SOCIAL HISTORY Never Assessed REASON FOR VISIT test (walk-in)- [facility] PLAN OF CARE VITAL SIGNS MEDICATIONS Unknown Medications RESULTS Name Result Date Reference Range TEST, URINE (IN HOUSE) 2017-09-30 RESULTS POS Lot # [id number] Control pos Exp date 12/18/2018 PROCEDURES Procedure Date Ordered Result Body Site URINE TEST Sep 30, 2017 INSTRUCTIONS MEDICATIONS ADMINISTERED No Known Medications
--- OUTSIDE RECORDS SUMMARY | 2018-05-02 10:57 | External Medical Summary | Continuity of Care Document ---
:1990 Author Organization [facility] Address [address] [place] [address] [phone] Phone Allergies, Adverse Reactions, Alerts Substance Reaction Severity Status amoxicillin Hives Unknown Active CETIRIZINE HCL Hives Unknown Active Penicillins Hives Unknown Active Medications Medication Instructions Dosage Effective Dates Status Comments (start - stop) 27 mg-0.8 take 1 tablet by Not Available - Active mg tablet oral route every day Problems Condition Effective Dates (start - stop) Clinical Status Previous Low Transverse - Matern care for oth or susp poor fetl - grth, third tri, unsp 28 weeks gestation of - Supervision of [...] Referring In Womens Transverse 3-201 Pari. Provider: Barry Dalal-SectionEncounte 8 [address] PO Box r for suprvsn of Medical Michael M, 1522, normal , Center [address] [place], third kwpyiznoj49 [place], weeks gestation 120, [place], [id number], [place], [place], [id number]. tel: [phone] tel: , . [id number] tel: [phone] Pawel Mathur Previous Low Jayne Referring In Womens Transverse 1-201 Pari. Provider: Shabana SMITH C-SectionMatern 8 700 Se PO Box care for oth or Medical Michael M, 1522, susp poor fetl Center [address], third tri, [place], unsp28 weeks 120, [place], [id number], gestation of [place], [place], [place], [id number]. tel: [phone] tel: , [place]. 7453105 tel: [phone] Pawel Mathur Supervision of May-3 Jayne Referring In Womens Ultrasound other high risk 1-201 Pari. Provider: Health PA, pregnancies, 8 700 Se PO Box third Medical Michael M, 1522, trimesterPrevious Center [address] Low Transverse [place], C-Erwhiag34 weeks 120, [place], [id number], gestation of [place], [place], [place], [id number]. tel: tel: , [place]. 1887799 tel: [phone] Pawel Mathur Supervision of May-0 Jayne Referring In Womens other high risk 3-201 Pari. Provider: Health PA, pregnancies, 8 700 Se PO Box second Frieda Rodriguez M, 1522, trimesterPrevious Center [address] Low Transverse [place], C-Vfnxvyy81 weeks 120, [place], [id number], gestation of [place], [place], [id number]. tel: tel: , [place]. 5121134 tel: [phone] Pawel Mathur Supervision of Apr-0 Jayne Referring In Womens other high risk 5-201 Pari. Provider: Shabana PA, pregnancies, 8 700 Se PO Box second Medical Michael M, 1522, trimesterPrevious Center [address] Low Transverse [place], C-Lqirofp21 weeks 120, [place], [id number], gestation of [place], [place], [place], [id number]. tel: tel: , [place]. 3266342 tel: [phone] Pawel Mathur Previous Low Apr-0 Cueva Referring In Womens Ultrasound Transverse 5-201 Deborah. Provider: Health LUIS, C-SectionMaternal 8 700 Se PO Box care for excess Medical Michael M, 1522, growth, Center [address], [place], unsp20 weeks 120, [place], [id number], gestation of [place], [place], [id number]. tel:[phone] tel: , [place]. 8138235 tel: [phone] Associates [facility] Supervision of Mar-2 Jayne Referring In Womens other high risk 3-201 Pari. Provider: Health PA, pregnancies, 8 700 Se PO Box second Medical Rodriguez M, 1522, trimesterPrevious Center [address] Rodriguez Transverse [place], C-SectionOther 120, [place], [id number], general symptoms ROBYN [place], [place] and signs18 weeks [place], [id number]. tel: gestation of [phone] tel: , US. 8965774 tel: [phone] Pawel Mathur Supervision of Mar-1 Jayne Referring In Womens other high risk 9-201 Pari. Provider: Health PA, pregnancies, 8 700 Se PO Box second [facility] M, 1522, trimesterPrevious Center [address] Rodriguez Transverse [place], C-Oespckd39 weeks 120, [place], [id number], gestation of ROBYN [place], [place], [id number]. tel:[phone] tel: , US. 2999080 tel: [phone] Pawel Mathur Supervision of Mar-1 Jayne Referring In Womens other high risk 5-201 Pari. Provider: Health PA, pregnancies, 8 700 Se PO Box second [facility], 1522, trimesterOther Center [address] [place], general symptoms [place], and signs17 weeks 120, [place], [id number], gestation of ROBYN [place], [place], [id number]. tel:[phone] tel: , US. 3649262 tel: [phone] Pawel Mathur Supervision of Mar-0 Jayne Referring In Womens other high risk 7-201 Pari. Provider: Health PA, pregnancies, 8 700 Se PO Box second Medical Rodriguez M, 1522, trimesterPrevious Center [address] Transverse [place], C-SectionMaternal 120, [place], [id number], care for excess [place], [place], [place], [place], [address]. tel: second tri, [phone] tel: unsp16 weeks , [place]. 5852126 gestation of tel: [phone] [facility] Jun-0 Jacklyn In Womens 7-201 Karley. [facility], 3 700 PO Box Medical [address] Jennifer, [facility], 120, [id number], [facility] [place], tel:[phone] , [place]. tel: [phone] [facility] Apr- Jayne In Womens 3-201 Pari. [facility], 2 700 PO Box Medical [address], [address], [facility] ROBYN, 120, [id number], [facility] [place], tel: [phone] 196790 , [place]. tel: [phone] Family History Family Member Diagnosis Age At Onset Maternal Grandfather Epilepsy Paternal Grandmother Diabetes mellitus Father Bipolar Disorder Sister Bipolar Disorder Paternal Grandmother Cancer, breast Immunizations Vaccine Date Status Comments Unknown Payers Payer name Insurance type Covered democrat ID Authorization(s) [employer] [place] [employer] - Medicaid MC [id number] Social History Type Description Quantity Date Captured Alcohol Use Details No Caffeine Use Details Unknown Tobacco Use Status Smoking Status Former smoker Vital Signs Date / Height Weight BMI Pulse Blood Temperature Respiratory Body Head BMI Time: Rate Pressure Rate Surface Circumference percentile Area 141.40 26.7 lbs 1 mm[Hg] 2:59 kg/m PM eter (2) Chief Complaint And Reason For Visit Unknown Chief Complaint And Reason For Visit Reason For Referral Reason For Referral Unknown Plan Of Care Date Type Action Status Appointment Lisy Clarke BOOKED Appointment Lisy Clarke BOOKED Appointment Lisy Clarke - [facility] [place] - RC/S BOOKED Future Order: Radiology Order Ultrasound OB Follow-up ([id number]) Ordered Future Order: Radiology Order Complete OB Ultrasound > 14 Weeks Ordered ([id number]) Date Type Problem Goal Intervention Status Start [...]
--- OUTSIDE RECORDS SUMMARY | 2018-05-02 10:57 | External Medical Summary | Continuity of Care Document ---
:1990 Author Organization [facility] Address [address] [place] [address] [phone] Phone Allergies, Adverse Reactions, Alerts Substance Reaction [...] SMITH, pregnancies, 8 700 Pari PO Box [facility] Medical Jayne L, 1522, trimesterPrevious Center [address] [place], Low Transverse [place], C-Wwiormj12 weeks 120, [place] [id number], gestation of Kevan [facility] 120, [place], tel: [phone] ROBYN, 2080[address] , [place]. [id number]. tel: tel: [phone] Pawel Mathur Supervision of Jayne Referring In Womens other high risk 5-201 Pari. Provider: Shabana SMITH, pregnancies, 8 700 Se PO Box [facility] Michael Calles, 1522, trimesterPrevious Center [address] [place], Low Transverse [place], C-Okxxsqt97 weeks 120, [place], [id number], gestation of [place], [place], [place], [address]51. tel:[phone] tel: , [place]. 5425847 tel: [phone] [facility] Matern care for Jw-2 Jayne Referring In Womens Ultrasound oth or susp poor 5-201 Pari. Provider: Health LUIS, fetl thee, third 8 700 Se PO Box tri, unsp32 weeks Medical [facility], 1522, gestation of Center [address] [place], [place], 120, [place], [id number], [place], [place], [place], [id number]. tel:[phone] tel: , [place]. 1525912 tel: [phone] [facility] Previous Low Jw-1 Jayne Referring In Womens Transverse 3-201 Pari. Provider: Shabana SMITH C-SectionEncounte 8 700 Se PO Box r for suprvsn of [facility] M, 1522, normal , Center [address] [place], third buvoycccf53 [place], weeks gestation 120, [place], [id number], of [place], [place], [place], [id number]. tel:[phone] tel: , US. 0696834 tel: [phone] Pawel Mathur Previous Low May-3 Jayne Referring In Womens Transverse 1-201 Pari. Provider: Shabana SMITH C-SectionMatern 8 700 Se PO Box care for oth or Medical Rodriguez M, 1522, susp poor fetl Center [address] sherlyn, third tri, [place], unsp28 weeks 120, [place], [id number], gestation of [place], [place], 377809093. tel:[phone] tel: , [place]. 4348055 tel: [phone] [facility] Supervision of January-3 Jayne Referring In Womens Ultrasound other high risk 1-201 Pari. Provider: Health PA, pregnancies, 8 700 Se PO Box third Medical Michael M, 1522, trimesterPrevious Center [address] Low Transverse [place], C-Uwniuwy29 weeks 120, [place], [id number], gestation of [place], [place], [id number]. tel:[phone] tel: , US. 9689063 tel: [phone] Associates [place] Supervision of May-0 Jayne Referring In Womens other high risk 3-201 Pari. Provider: Health PA, pregnancies, 8 700 Se PO Box second Medical Michael M, 1522, trimesterPrevious Center [address] Low Transverse [place], C-Bpovohh12 weeks 120, [place], [id number], gestation of [place], [place], 945093271. tel:[phone] tel: , US. 4410088 tel: [phone] [facility] Supervision of Apr-0 Jayne Referring In Womens other high risk 5-201 Pari. Provider: Shabana SMITH, pregnancies, 8 700 Se PO Box second Medical Michael M, 1522, trimesterPrevious Center [address] Low Transverse [place], C-Bfwkcgb47 weeks 120, [place], [id number], gestation of [place], [place], [id number]. tel:[phone] tel: , US. 6259045 tel: [phone] [facility] Previous Low Apr-0 Cueva Referring In Womens Ultrasound Transverse 5-201 Deborah. Provider: Shabana SMITH, C-SectionMaternal 8 700 Se PO Box care for excess Medical Michael M, 1522, growth, Center [address] [place], stephon tri, [place], unsp20 weeks 120, [place], [id number], gestation of [place], [place], 116464789. tel:[phone] tel: , US. 0929919 tel: [phone] Pawel Mathur Supervision of Mar-2 Jayne Referring In Womens other high risk 3-201 Pari. Provider: Health PA, pregnancies, 8 700 Se Box second [facility] M, 1522, trimesterPrevious Center [address] [place], Low Transverse [place], C-SectionOther 120, [place], [id number], general symptoms ROBYN Mathur, [place] and signs18 weeks [place], [id number]. tel: gestation of [phone] tel: , US. 8496624 tel: [phone] Pawel Mathur Supervision of Mar-1 Jayne Referring In Womens other high risk 9-201 Pari. Provider: Health PA, pregnancies, 8 700 Se PO Box second [facility] M, 1522, trimesterPrevious Center [address] [place], Low Transverse [place], C-Aoxngra30 weeks 120, [place], [id number], gestation of [place], [place], 770616236. tel: tel: , US. 2204754 tel: [phone] Pawel Mathur Supervision of Mar-1 Jayne Referring In Womens other high risk 5-201 Pari. Provider: Health PA, pregnancies, 8 700 Se PO Box second [facility] M, 1522, trimesterOther Center [address] [place], general symptoms [place], and signs17 weeks 120, [place], [id number], gestation of Kevan ROBYN, [place], 508969829. tel:[phone] tel: , US. 1799887 tel: [phone] Pawel Mathur Supervision of Mar-0 Jayne Referring In Womens other high risk 7-201 Pari. Provider: Health PA, pregnancies, 8 700 Se PO Box second [facility] M, 1522, trimesterPrevious Center [address] [place], Low Transverse , Davi [place], [place], C-SectionMaternal 120, [place], [id number], care for excess [place], [place], [place] growth, [place], [id number]. tel: second tri, [phone] tel: unsp16 weeks , US. 2365650 gestation of tel: [phone] [facility] Jacklyn In Womens 7-201 Karley. [facility], 3 700 PO Box Medical [address], [address] Jennifer, Davi [place], 120, [id number], [place], [place], tel:[phone] , [place]. tel: [phone] Pawel Mathur Jayne In Womens 3-201 Pari. [facility], 2 700 PO Box Medical [address], [address] Jennifer, Davi [place], 120, [id number], [facility] [place], tel:[phone] , [place]. tel: [phone] Family History Family Member Diagnosis Age At Onset Maternal Grandfather Epilepsy Paternal Grandmother Diabetes mellitus Father Bipolar Disorder Sister Bipolar Disorder Paternal Grandmother Cancer, breast Immunizations Vaccine Date Status Comments Tdap completed Source: New Immunization Record Payers Payer name Insurance type Covered libertarian ID Authorization(s) [employer] [place] [employer] - Medicaid MC [id number] [employer] [place] [employer] - Medicaid [place] [id number] Social History Type Description Quantity Date Captured [...] Lisy Clarke BOOKED Appointment Lisy Clarke - [facility] [place] - RC/S BOOKED Future Order: Radiology Order Ultrasound OB Follow-up ([id number]) Ordered Future Order: Radiology Order Ultrasound OB Follow-up ([id number]) Ordered Future Order: Radiology Order Complete OB Ultrasound > 14 Weeks Ordered ([id number]) Date Type Problem Goal Intervention Status Start [...]
--- OUTSIDE RECORDS SUMMARY | 2018-05-02 10:58 | External Medical Summary | Continuity of Care Document ---
:1990 Author Organization [facility] Address [address] [place] [address] [phone] Phone Allergies, Adverse Reactions, Alerts Substance Reaction [...] Rodriguez M, 1522, trimesterPrevious Center [address] [place], Low Transverse [place], C-Amhwiso62 weeks 120, [place], [id number], gestation of [place], [place], [place], 865059493. tel: [phone] tel: , US. 2297360 tel: [phone] Pawel Mathur Previous Low Apr-0 Cueva Referring In Womens Ultrasound Transverse 5-201 Deborah. Provider: Shabana SMITH, C-SectionMaternal 8 700 Se PO Box care for excess Medical Rodriguez M, 1522, growth, Center [address] [place], second leticia, [place], unsp20 weeks 120, [place], [id number], gestation of [place], [place], [place], 834868538. tel: [phone] tel: , US. 7895353 tel: [phone] Pawel Mathur Supervision of Nov- Jayne Referring In Womens other high risk 3-201 Pari. Provider: Shabana SMITH, pregnancies, 8 700 Se PO Box second Medical Rodriguez M, 1522, trimesterPrevious Center [address] Low Transverse [place], C-SectionOther 120, [place], [id number], general symptoms ROBYN Math[place], [place] and signs18 weeks [place], [id number]. tel: gestation of [phone] tel: , US. 8959649 tel: [phone] Pawel Mathur Supervision of Mar-1 Jayne Referring In Womens other high risk 9-201 Pari. Provider: Health PA, pregnancies, 8 700 Se PO Box second Medical Rodriguez M, 1522, trimesterPrevious Center [address] [place], Low Transverse [place], C-Yaeidks59 weeks 120, [place], [id number], gestation of [place], [place], 983921841. tel:[phone] tel: , US. 4492895 tel: [phone] Pawel Mathur Mar-1 Jayne In Womens 5-201 Pari. Health PA, 8 700 PO [place] [facility] 1522, Center [place], [place], 120, [id number], [place], [place], tel:[phone] , [place]. tel: [phone] Pawel Mathur Supervision of Mar-1 Jayne Referring In Womens other high risk 5-201 Pari. Provider: Health PA, pregnancies, 8 700 Se PO Box second Medical [place] M, 1522, trimesterOther Center [address] [place], general symptoms [place] KS, and signs17 weeks 120, [place], [id number], gestation of ROBYN [place], [place], 144188226. tel:[phone] tel: , US. 3766473 tel: [phone] Pawel Mathur Supervision of Mar-0 Jayne Referring In Womens other high risk 7-201 Pari. Provider: Health PA, pregnancies, 8 700 Se PO Box second Medical Rodriguez M, 1522, trimesterPrevious Center [address] Low Transverse [place], C-SectionMaternal 120, [place], [id number], care for excess [place], [place], [place], [place], 875722567. tel: second tri, [id number] tel: unsp16 weeks , US. 6305029 gestation of tel: [phone] Associates [facility] Oct-0 Jacklyn In Womens 7-201 Karley. [facility], 3 700 PO [place] [facility] [address], [address] Jennifer, Davi [place], 120, [id number], [facility] [place], tel: [phone] 196790 , [place]. tel: [phone] Associates [place]evan Apr- Jayne In Womens 3-201 Pari. [facility], 2 700 PO Box Medical [address], [address] Jennifer, Davi [place], 120, [id number], [facility] [place], tel: [phone] 196790 , [place]. tel: [phone] Family History Family Member Diagnosis Age At Onset Maternal Grandfather Epilepsy Paternal Grandmother Diabetes mellitus Father Bipolar Disorder Sister Bipolar Disorder Paternal Grandmother Cancer, breast Immunizations Vaccine Date Status Comments Unknown Payers Payer name Insurance type Covered green party ID Authorization(s) [employer] [place] [employer] - Medicaid MC [id number] Social History Type Description Quantity Date Captured [...] Complete OB Ultrasound > 14 Weeks Ordered ([id number]) Date Type Problem Goal Intervention Status Start [...]
--- OUTSIDE RECORDS SUMMARY | 2018-05-02 10:58 | External Medical Summary | Continuity of Care Document ---
:1990 Author Organization [facility] Address [address] [place] [address] [phone] Phone Allergies, Adverse Reactions, Alerts Substance Reaction [...] stop) Clinical Status Previous Low Transverse - Maternal care for excess growth, - second tri, unsp 20 weeks gestation of - Supervision of [...] tri, unsp 16 weeks gestation of - Placental Problem, NEC, Antepartum - Active Procedures Procedure Date Ultrasound exam of preg uterus, complete Results Test Name Date and Time Measure [...] Rodriguez M, 1522, trimesterPrevious Center [address] [place], Low Transverse [place], C-Nmfyhgp32 weeks 120, [place], [id number], gestation of [place], [place], [id number]. tel: [phone] tel: , [place]. 6521691 tel: [phone] Associates [facility] Previous Low Apr-0 Cueva Referring In Womens Ultrasound Transverse 5-201 Deborha. Provider: Shabana SMITH, C-SectionMaternal 8 700 Se PO Box care for excess Medical Rodriguez M, 1522, growth, Center [address] [place], second tri, [place], unsp20 weeks 120, [place], [id number], gestation of [place], [place], 785863378. tel: [phone] tel: , [place]. 8309294 tel: [phone] Pawel Mathur Supervision of Nov-2 Jayne Referring In Womens other high risk 3-201 Pari. Provider: Shabana SMITH, pregnancies, 8 700 Se PO Box second Medical Rodriguez M, 1522, trimesterPrevious Center [address] Low Transverse [place], C-SectionOther 120, [place], [id number], general symptoms [place], [place] and signs18 weeks [place], [id number]. tel:+ gestation of [phone] tel: , US. 3689486 tel: [phone] Pawel Mathur Supervision of Mar-1 Jayne Referring In Womens other high risk 9-201 Pari. Provider: Health PA, pregnancies, 8 700 Se PO Box second [facility] M, 1522, trimesterPrevious Center [address] [place], Low Transverse [place], C-Zdaciac36 weeks 120, [place], [id number], gestation of [place], [place], 515705809. tel:[phone] tel: , US. 4327184 tel: [phone] Pawel Mathur Mar-1 Jayne In Womens 5-201 Pari. Health PA, [address] [facility] Medical 15[address], [address] [place], 120, [id number], [place], [place], tel:[phone] , [place]. tel: [phone] Pawel Mathur Supervision of Mar-1 Jayne Referring In Womens other high risk 5-201 Pari. Provider: Health PA, pregnancies, 8 700 Se PO Box second [facility] M, 1522, trimesterOther Center [address] [place], general symptoms [place], and signs17 weeks 120, [place], [id number], gestation of [place], [place], 633666413. tel:[phone] tel: , US. 5814311 tel: [phone] Pawel Mathur Supervision of Mar-0 Jayne Referring In Womens other high risk 7-201 Pari. Provider: Health PA, pregnancies, 8 700 Se PO Box second [facility], 1522, trimesterPrevious Center [address] [place], Low Transverse [place], [place], C-SectionMaternal 120, [place], [id number], care for excess [place], [place], [place], [place], [id number]. tel: second tri, [phone] tel: unsp16 weeks , US. 5066828 gestation of tel: [phone] [facility] Jun-0 Jacklyn In Womens 7-201 Karley. [facility], 3 700 PO [place] [facility] [address], [address] Jennifer, [facility] ROBYN, 120, [id number], [facility] [place], tel:[phone] , [place]. tel: [phone] Associates [place] Apr- Jayne In Womens 3-201 Pari. [facility], 2 700 PO Box Medical [address], [address], Davi [place], 120, [id number], [facility] [place], tel:[phone] , [place]. tel: [phone] Family History Family Member Diagnosis Age At Onset Maternal Grandfather Epilepsy Paternal Grandmother Diabetes mellitus Father Bipolar Disorder Sister Bipolar Disorder Paternal Grandmother Cancer, breast Immunizations Vaccine Date Status Comments Unknown Payers Payer name Insurance type Covered green party ID Authorization(s) [employer] - Medicaid MC [id number] Social History Type Description Quantity Date Captured [...] Complete OB Ultrasound > 14 Weeks Ordered ([id number]) Date Type Problem Goal Intervention Status Start [...]
--- OUTSIDE RECORDS SUMMARY | 2018-05-02 10:58 | External Medical Summary | Continuity of Care Document ---
:1990 Author Organization [facility] Address [address] [place] [address] [phone] Phone Allergies, Adverse Reactions, Alerts Substance Reaction Severity Status amoxicillin Hives Unknown Active CETIRIZINE HCL Hives Unknown Active Penicillins Hives Unknown Active Medications Medication Instructions Dosage Effective Dates Status Comments (start - stop) 27 mg-0.8 take 1 tablet by Not Available - Active mg tablet oral route every day Problems Condition Effective Dates (start - stop) Clinical Status Previous Low Transverse - Encounter for ascencion of normal - , third trimester 30 weeks gestation of - Supervision of other [...] For Visit Members Pawel Mathur Supervision of Jw-2 Jayne Referring In Womens other high risk - Pari. Provider: Shabana SMITH, pregnancies, [address] third Medical [facility], 1522, trimesterPrevious Center [address] [facility] [address], [place], C-Rowquax57 weeks 120, [place], [id number], gestation of [place], [place], [place], [id number]. tel: [phone] tel: [phone] , [place]. [id number] tel: [phone] Pawel Mathur Matern care for Jw-2 Jayne Referring In Womens Ultrasound oth or susp poor -201 Pari. Provider: Health LUIS, fetl gr, third [address] tri, unsp32 weeks Medical [facility], 1522, gestation of Center [address] [place], [place], 120, [place], [id number], [place], [place], [id number]. tel: tel: , [place]. 8756721 tel: [phone] [facility] [place] Previous Low Jw-1 Jayne Referring In Womens Transverse 3-201 Pari. Provider: Shabana SMITH, C-SectionEncounte 8 [address] PO Box r for suprvsn of [facility], 1522, normal , Center [address] [place], third gunuypwbt72 [place], weeks gestation 120, [place], [id number], [place], [id number]. tel: tel: , [place]. 5799399 tel:[phone] Associates [place] Previous Low May-3 Jayne Referring In Womens Transverse 1-201 Pari. Provider: Shabana SMITH, C-SectionMatern 8 [address] PO Box care for oth or Medical Rodriguez M, 1522, susp poor fetl Center [address], third tri, [place], unsp28 weeks 120, [place], [id number], gestation of [place], [place], [id number]. tel: tel: , [place]. [id number] tel: [phone] [facility] [place] Supervision of January-3 Jayne Referring In Womens Ultrasound other high risk 1-201 Pari. Provider: Shabana SMITH, pregnancies, [address] third Medical Rodriguez M, 1522, trimesterPrevious Center [address] [place], Low Transverse [place], C-Tnszgqe54 weeks 120, [place], [id number], gestation of [place], [place], [id number]. tel: tel: , [place]. [id number] tel: [phone] [facility] [place] Supervision of May-0 Jayne Referring In Womens other high risk 3-201 Pari. Provider: Shabana SMITH, pregnancies, [address] Box second Medical [place] M, 1522, trimesterPrevious Center [address] Transverse [place], C-Vqvqvsg38 weeks 120, [place], [id number], [place], [id number]. tel:[phone] tel: , [place]. 0961943 tel: [phone] Pawel Mathur Supervision of Apr-0 Jayne Referring In Womens other high risk 5-201 Pari. Provider: Health PA, pregnancies, [address] Box second Medical [place] M, 1522, trimesterPrevious Center [address] Transverse [place], C-Thxsjuq45 weeks 120, [place], [id number], [place], [place], [id number]. tel: tel: , [place]. 8930877 tel: [phone] Pawel [place]ur Previous Low Apr-0 Cueva Referring In Womens Ultrasound Transverse 5-201 Deborah. Provider: Health LUIS, C-SectionMaternal 8 [address] PO Box care for excess Medical Michael M, 1522, growth, Center [address], [place], unsp20 weeks 120, [place], [id number], [place], [place], [id number]. tel: tel: , [place]. 6730930 tel: [phone] Pawel Mathur Supervision of Nov-2 Jayne Referring In Womens other high risk 3-201 Pari. Provider: Health PA, pregnancies, [address] Box second Medical Rodriguez M, 1522, trimesterPrevious Center [address] Transverse [place], C-SectionOther 120, [place], [id number], general symptoms [place], [place], [place] and signs18 weeks [place], [id number]. tel: gestation of [phone] tel: , US. 6174773 tel:[phone] Pawel Mathur Supervision of Mar-1 Jayne Referring In Womens other high risk 9-201 Pari. Provider: Health PA, pregnancies, 8 [address] Se [facility], 1522, trimesterPrevious Center [address] [place], Low Transverse [place], C-Rriwfnc58 weeks 120, [place], [id number], gestation of [place], [place], [id number]. tel:[phone] tel: , US. 9764286 tel: [phone] Pawel Mathur Supervision of Mar-1 Jayne Referring In Womens other high risk 5-201 Pari. Provider: Health PA, pregnancies, 8 [address] [facility], 1522, trimesterOther Center [address] [place], general symptoms [place], and signs17 weeks 120, [place], [id number], gestation of [place], [place], [id number]. tel: tel: , [place]. 4189881 tel: [phone] Pawel Mathur Supervision of Mar-0 Jayne Referring In Womens other high risk 7-201 Pari. Provider: Health PA, pregnancies, 8 [address] [facility], 1522, trimesterPrevious Center [address] [place], Low Transverse [place], C-SectionMaternal 120, [place], [id number], care for excess [place], [place], [place], [place], [id number]. tel: second tri, [phone] tel: unsp16 weeks , US. [id number] gestation of tel: [phone] Pawel Mathur Jun-0 Jacklyn In Womens 7-201 Karley. Health PA, 3 700 [facility] Medical [address], [address] [place], 120, [id number], [place], [place], tel:[phone] , [place]. tel: [phone] Pawel Mathur Jayne In Womens 3-201 [facility], [address] 700 PO Box Medical [address], [address] Jennifer, [facility], 120, [id number], [place], [facility], tel:[phone] , [place]. tel: [phone] Family History Family Member Diagnosis Age At Onset Maternal Grandfather Epilepsy Paternal Grandmother Diabetes mellitus Father Bipolar Disorder Sister Bipolar Disorder Paternal Grandmother Cancer, breast Immunizations Vaccine Date Status Comments Unknown Payers Payer name Insurance type Covered democrat ID Authorization(s) [employer] [place] [employer] - Medicaid [place] [id number] Social History Type Description Quantity Date Captured Alcohol Use Details No Caffeine Use Details Unknown Tobacco Use Status Smoking Status Former smoker Vital Signs Date / Height Weight BMI Pulse Blood Temperature Respiratory Body Head BMI Time: Rate Pressure Rate Surface Circumference percentile Area 146.00 27.5 lbs 8 mm[Hg] 4:34 kg/m PM eter (2) Chief Complaint And Reason For Visit Unknown Chief Complaint And Reason For Visit Reason For Referral Reason For Referral Unknown Plan Of Care Date Type Action Status Appointment Lisy Clarke BOOKED Appointment Lisy Clarke - [facility] - RC/S BOOKED Future Order: Radiology Order Ultrasound OB Follow-up ([id number]) Ordered Future Order: Radiology Order Complete OB Ultrasound > 14 Weeks Ordered ([id number]) Future Order: Radiology Order Ultrasound OB Follow-up ([id number]) Ordered Date Type Problem Goal Intervention Status [...]
--- OUTSIDE RECORDS SUMMARY | 2018-05-02 10:58 | External Medical Summary | Continuity of Care Document ---
:1990 Author Organization [facility] Address [address] [place] [address] [phone] Phone Allergies, Adverse Reactions, Alerts Substance Reaction [...] NEC, Antepartum - Active Procedures Procedure Date Unknown Results Test Name Date and Time Measure [...] E Jennifer Low Transverse [place], C-Efmyjgd71 weeks 120, [place], [id number], gestation of [place], [place], [place], [id number]. tel: [phone] tel: , [place]. 8047307 tel: [phone] Pawel Mathur Previous Low Apr-0 Cueva Referring In Womens Ultrasound Transverse 5-201 Deborah. Provider: Shabana SMITH, C-SectionMaternal 8 [address] PO Box care for excess Medical Rodriguez M, 1522, growth, Center [address] [place], second leticia, [place], unsp20 weeks 120, [place], [id number], gestation of [place], [place], [place], [id number]. tel: [phone] tel: , [place]. 5924636 tel: [phone] Pawel Mathur Supervision of Nov- Jayne Referring In Womens other high risk 3-201 Pari. Provider: Shabana SMITH, pregnancies, [address] Box second Medical Rodriguez M, 1522, trimesterPrevious Center [address] [place], Low Transverse [place], C-SectionOther 120, [place], [id number], general symptoms [place], [place], [place] and signs18 weeks [place], [id number]. tel:+ gestation of [phone] tel: , US. 6663180 tel: [phone] Pawel Mathur Mar-2 Jayne In Womens 3-201 Pari. Health [place], 8 700 [facility] 15[address], [address] Jennifer, [facility] [place], 120, [id number], [place], [place], tel:[phone] , [place]. tel: [phone] Pawel Mathur Supervision of Mar-1 Jayne Referring In Womens other high risk 9-201 Pari. Provider: Health PA, pregnancies, [address] [facility], 1522, trimesterPrevious Center [address] [place], Low Transverse [place], C-Nedubrx59 weeks 120, [place], [id number], gestation of [place], [place], [id number]. tel:[phone] tel: , US. 9778972 tel: [phone] Pawel Mathur Mar-1 Jayne In Womens 5-201 Pari. Health [place], 8 700 [facility] [address], [address] [place], 120, [id number], [place], [place], tel:[phone] , [place]. tel: [phone] Pawel Mathur Supervision of Mar-1 Jyane Referring In Womens other high risk 5-201 Pari. Provider: Health PA, pregnancies, [address] [facility], 1522, trimesterOther Center [address] [place], general symptoms [place], and signs17 weeks 120, [place], [id number], gestation of [place], [place], [id number]. tel:[phone] tel: , US. 5032681 tel: [phone] Pawel Mathur Supervision of Jayne Referring In Womens other high risk 7-201 Pari. Provider: Health LUIS, pregnancies, [address] [facility] Medical Rodriguez M, 1522, trimesterPrevious Center [address] [place], Low Transverse , [place], [place], C-SectionMaternal 120, [place], [id number], care for excess [place], [place], [place], [place], [id number]. tel: second tri, [phone] tel: unsp16 weeks , US. [id number] gestation of tel: [phone] Pawel Mathur Jun- Jacklyn In Womens 7-201 Karley. Shabana SMITH, 3 700 [facility] [address], [address] Jennifer, [facility] [place], 120, [id number], [place], [place], tel:[phone] , [place]. tel: [phone] Pawel Mathur Jayne In Womens 3-201 Pari. Health LUIS, 2 700 [facility] [address], [address] Jennifer, [facility] [place], 120, [id number], [facility] [place], tel:[phone] , [place]. tel: [phone] Family History Family Member Diagnosis Age At Onset Maternal Grandfather Epilepsy Paternal Grandmother Diabetes mellitus Father Bipolar Disorder Sister Bipolar Disorder Paternal Grandmother Cancer, breast Immunizations Vaccine Date Status Comments Unknown Payers Payer name Insurance type Covered green party ID Authorization(s) [employer] [place] [employer] - Medicaid [place] [id number] Social History Type Description Quantity Date Captured [...] Complete OB Ultrasound > 14 Weeks Ordered ([id number]) Date Type Problem Goal Intervention Status Start [...]
--- OUTSIDE RECORDS SUMMARY | 2018-05-02 10:58 | External Medical Summary | Continuity of Care Document ---
:1990 Author Organization [facility] Address [address] [place] [address] [phone] Phone Allergies, Adverse Reactions, Alerts Substance Reaction [...] Rodriguez M, 1522, trimesterPrevious Center [address] [place], Low Transverse [place], C-Rtcdwik65 weeks 120, [place], [id number], gestation of [place], [place], [place], [id number]. tel: [phone] tel: , [place]. 2756784 tel: [phone] Pawel Mathur Previous Low Apr-0 Cueva Referring In Womens Ultrasound Transverse 5-201 Deborah. Provider: Shabana SMITH, C-SectionMaternal 8 [address] PO Box care for excess Medical Rodriguez M, 1522, growth, Center [address] [place], second leticia, [place], unsp20 weeks 120, [place], [id number], gestation of [place], [place], [place], [id number]. tel: [phone] tel: , [place]. 7318706 tel: [phone] Pawel Mathur Supervision of Nov- Jayne Referring In Womens other high risk 3-201 Pari. Provider: Shabana SMITH, pregnancies, [address] Box second Medical Rodriguez M, 1522, trimesterPrevious Center [address] Jennifer Low Transverse [place], C-SectionOther 120, [place], [id number], general symptoms [place], [place] and signs18 weeks [place], [id number]. tel: gestation of [id number] tel: , US. 2611264 tel: [phone] Pawel Mathur Supervision of Mar-1 Jayne Referring In Womens other high risk 9-201 Pari. Provider: Health PA, pregnancies, [address] Box second Medical Rodriguez M, 1522, trimesterPrevious Center [address] [place], Low Transverse [place], C-Vacuuxc62 weeks 120, [place], [id number], gestation [place], [place], [id number]. tel:[phone] tel: , [place]. 2318293 tel: [phone] Pawel Mathur Mar-1 Jayne In Womens 5-201 Pari. Health PA, 8 700 PO [place] [facility] 1522, Center [place], [place], 120, [id number], [place], [place], tel:[phone] , [place]. tel: [phone] Pawel Mathur Supervision of Mar-1 Jayne Referring In Womens other high risk 5-201 Pari. Provider: Health PA, pregnancies, [address] Box second Medical [place] M, 1522, trimesterOther Center [address] [place], general symptoms [place], and signs17 weeks 120, [place], [id number], gestation of [place], [place], [id number]. tel:[phone] tel: , [place]. 7819898 tel: [phone] Pawel Mathur Supervision of Mar-0 Jayne Referring In Womens other high risk 7-201 Pari. Provider: Health PA, pregnancies, [address] Box second Medical Rodriguez M, 1522, trimesterPrevious Center [address] Low Transverse [place], C-SectionMaternal 120, [place], [id number], care for excess [place], [place], [place], [place], [id number]. tel: second tri, [phone] tel: unsp16 weeks , [place]. 8173316 gestation of tel: [phone] Associates [place] Jun-0 Jacklyn In Womens 7-201 Karley. [facility], [address] 700 PO [place] [facility] [address], [address] Jennifer, [place], 120, [id number], [facility] [place], tel:[phone] , [place]. tel: [phone] Associates [place] Apr- Jayne In Womens 3-201 Pari. [facility], [address] 700 [address] Medical [address], [address] Jennifer, [place], 120, [id number], [facility] [place], tel: [phone] [address] , [place]. tel: [phone] Family History Family Member Diagnosis Age At Onset Maternal Grandfather Epilepsy Paternal Grandmother Diabetes mellitus Father Bipolar Disorder Sister Bipolar Disorder Paternal Grandmother Cancer, breast Immunizations Vaccine Date Status Comments Unknown Payers Payer name Insurance type Covered libertarian ID Authorization(s) [employer] - Medicaid [place] [id number] Social History Type Description Quantity Date Captured Alcohol Use Details No Caffeine Use Details Unknown Tobacco Use Status Smoking Status Former smoker Vital Signs Date / Height Weight BMI Pulse Blood Temperature Respiratory Body Head BMI Time: Rate Pressure Rate Surface Circumference percentile Area 118.00 22.2 109/69 2018 lbs 9 mm[Hg] 1:09 kg/m PM eter (2) Chief Complaint And Reason For Visit Unknown Chief Complaint And Reason For Visit Reason For Referral Reason For Referral Unknown Plan Of Care Date Type Action Status Appointment Taryn Clarke BOOKED Future Order: Radiology Order Complete OB Ultrasound > 14 Weeks Ordered ([id number]) Date Type Problem Goal Intervention Status Start [...]
--- NOTE | 2018-05-02 11:39 | Anesthesia Preoperative Report ---
Anesthesia Epidural/Spinal Rec - Date and Time Date: 05/02/18 Procedure: Plan: Spinal - Vital Signs /Para: P:2 - Medictaions & Allergies Inpatient Medications: Current Medications Lactated Ringer's (Lactated Ringers) 1,000 mls @ 150 mls/hr IV .[id number] SMOOTH Last Admin: 05/02/18 10:57 Dose: 150 mls/hr Allergies/Adverse Reactions: Allergies Allergy/AdvReac Type Severity Reaction Status Date / Time latex Allergy Mild RASH Verified 12/03/17 11:04 amoxicillin Allergy Unknown RASH Verified 12/03/17 11:04 cetirizine Allergy Unknown Rash Verified 12/03/17 11:04 Penicillins Allergy Unknown RASH Verified 12/03/17 11:04 - Home Medications Home Medications: Home Medications Medication Instructions Recorded Confirmed Type Acetaminophen [Acetaminophen Extra 500 mg PO Q4H PRN 12/03/17 12/03/17 History Strength] Ondansetron [Zofran Odt] 1 tab PO Q4HR PRN #24 tab 12/03/17 Rx Oseltamivir Cap [Tamiflu] 75 mg PO BID 12/03/17 12/03/17 History - Medical History Other History: Reports: Now (EDC 05/07/18) - Surgical History Reproductive Surgery/Treatment: Reports: Section, Oophorectomy (Left) Anesthesia Reactions: None Hx Family Anesthesia Reaction: No History of Motion Sickness: No - Social History Smoking Status: Never smoker Second Hand Exposure: No Substance Use Type: does not use Alcohol Intake Frequency: does not drink Hx Chewing Tobacco Use: No - Pertinent Findings Lab Data: CBC and BMP 05/02/18 10:59 EKG Rhythm: Normal Sinus Rhythm - Physical Exam Respiratory Exam: lungs clear Cardiovascular Exam: regular rate and rhythm - Airway Assessment Mallampati Score: II TMD: 3 Fingerbreadths Neck Extension: good Overall Assessment: may be difficult mask vent, may be difficult intubation - ASA ASA Score: 2 - Discussion Discussion: Discussed risks/options/alternatives of anesthesia and questions answered. Patient consents. Nursing pain assessment noted. Anesthesia Discussion: spouse Attestation Statement: Prior to the delivery of any anesthetic medication, I examined the patient, developed the plan, obtained the patient's consent and discussed the risk and benefits of the procedure with the patient/guardian.
[2018-05-02] MEDS ORDERED: MORPHINE SULFATE PF 5mg/10ml INJ (Duramorph) ONE (11:53)
[2018-05-02] MEDS ORDERED: FentaNYL 100 MCG/2 ML INJECTION ONE ×3 (11:54→13:09)
[2018-05-02] MEDS ORDERED: BUPIVACAINE 0.75%/DEXTROSE 8.5% SPINAL 2 ML AMPULE IJ ONE (11:55)
[2018-05-02] MEDS ORDERED: LIDOCAINE 2% (100mg/5mL) 5ml PF SDV ONE (11:55)
[2018-05-02] MEDS ORDERED: ONDANSETRON 4 MG/2 ML INJECTION ONE (12:08)
[2018-05-02] MEDS: OXYTOCIN BOLUS BAG 30 UNIT/500 ML ML IV SCH ×2 (12:25→12:50)
[2018-05-02] MEDS ORDERED: TRANEXAMIC ACID 1,000 MG in NS 100 ML IV ONE (12:32)
[2018-05-02] MEDS ORDERED: METOCLOPRAMIDE 10mg/2ml INJECTION IVP PRN (13:32)
[2018-05-02] MEDS ORDERED: NALOXONE 2 MG/2 ML INJECTION PFS IVP PRN (13:32)
[2018-05-02] MEDS ORDERED: DiphenhydrAMINE 50 MG/ML INJECTION IVP PRN (13:32)
[2018-05-02] MEDS ORDERED: ONDANSETRON 4 MG/2 ML INJECTION IVP PRN (13:32)
[2018-05-02] MEDS ORDERED: NALBUPHINE 10 MG/ML INJECTION IVP PRN (13:32)
[2018-05-02] MEDS ORDERED: OXYTOCIN DRIP 30 UNIT/500 ML ML IV SCH (13:38)
[2018-05-02] MEDS ORDERED: ACETAMINOPHEN 500 MG TABLET PO PRN (13:38)
[2018-05-02] MEDS ORDERED: DiphenhydrAMINE 25 MG CAPSULE PO PRN (13:38)
[2018-05-02] MEDS ORDERED: D5LR 1,000 ML IV SCH (13:38)
[2018-05-02] MEDS ORDERED: CALCIUM CARBONATE Chewable 500mg TABLET PO PRN (13:38)
[2018-05-02] MEDS ORDERED: HYDROCORTISONE 2.5% CREAM 30gm RECTALLY PRN (13:38)
[2018-05-02] MEDS ORDERED: SIMETHICONE 80 MG CHEWABLE TABLET PO PRN (13:38)
--- NOTE | 2018-05-02 13:52 | Anesthesia Postoperative Note ---
- Date and Time Date: 05/02/18 Time: 13:51 - Status Patient Participated in Evaluation: Patient Participated in Person Respiratory Function: Airway Patent Mental Status: Alert and Oriented Pain Intensity: 2 Hydration: IV Infusing Nausea/Vomiting: None Complications During Recover: None Apparent - Follow-Up Instructions Instructions: Per Surgeon
[2018-05-02] MEDS: IBUPROFEN 800 MG TABLET PO SCH ×2 (14:20→23:17)
[2018-05-02] MEDS: HYDROCODONE/APAP 5mg/325mg TABLET PO PRN (14:20)
--- NOTE | 2018-05-02 17:55 | Operative Note ---
DATE OF SURGERY 05/02/2018 PREOPERATIVE DIAGNOSIS Term , previous x 2. POSTOPERATIVE DIAGNOSIS Term , previous x 2 - delivered. PROCEDURE Repeat low transverse section. SURGEON Pari Godoy MD BUTTON TACKER Chung [place], Roof Plumber ANESTHESIA Spinal epidural by Sylvester Lane CRNA EBL 800 mL. DESCRIPTION OF PROCEDURE Mrs. Clarke was brought to the OR and given regional analgesia to good effect. She was then placed on the OR table in a supine position with left lateral displacement. A Solis catheter was placed to dependent drain. The abdomen was prepped and draped in the usual sterile fashion. A Pfannenstiel skin incision was made through the patient's prior scar. The fascia was incised transfer transversely, then tented up. This was bluntly and sharply dissected free of the rectus muscles. Rectus muscles were bluntly divided. The peritoneum was densely adherent to the uterus. In fact, the anterior uterine corpus was adherent to the anterior abdominal wall. We slowly dissected through these adhesions. We then elevated the vesicouterine fold of peritoneum. It was incised transversely and we bluntly created a bladder flap. We then inserted the bladder blade to protect the bladder. A low transverse uterine incision was made with a sharp knife. There was clear amniotic fluid. Baby was delivered in the vertex presentation without difficulty. Baby was bulb suctioned on the abdomen. Cord was doubly clamped and cut and the baby was given to the pediatric team for care. This is a liveborn female with Apgars of 9/9. She weighed 7 pounds 3 ounces. The placenta was then expressed intact. It had a normal configuration and normal-appearing three-vessel cord. We swept the cavity clear of membranes and exteriorized the uterus. The myometrial incision was then reapproximated with a running, locking 0-Monocryl while the incision itself was hemostatic. The area on the anterior corpus where the adhesions had been was oozing quite freely. We used several 2-0 chromic sutures to oversew this in a running locking pattern, involuting it as we went. Once hemostasis was obtained we applied Surgicel to the incision. We returned the uterus to the abdominal cavity. We then placed a sheet of Interceed over the anterior corpus and over the uterine incision. We reapproximated peritoneum with a running, nonlocking 2-0 Vicryl. Fascia was then reapproximated with a running nonlocking 0-Vicryl. Skin edges were reapproximated with a subcuticular style 3-0 undyed Vicryl. The wound was dressed with the mesh and Dermabond dressing. Counts were correct postoperatively x 2. Her urine remained clear and free-flowing throughout the procedure. Mrs. Clarke has now been transferred to recovery in stable condition. MIRANDA
[2018-05-02] MEDS: SIMETHICONE 80 MG CHEWABLE TABLET PO SCH ×2 (23:20)
[2018-05-03] MEDS: IBUPROFEN 800 MG TABLET PO SCH ×2 (06:40→17:20)
[2018-05-03] MEDS: HYDROCODONE/APAP 5mg/325mg TABLET PO PRN ×4 (06:40→21:44)
[2018-05-03] MEDS: SIMETHICONE 80 MG CHEWABLE TABLET PO SCH ×4 (12:01→21:44)
[2018-05-03] MEDS: DOCUSATE CALCIUM 240 MG CAPSULE PO SCH (12:01)
[2018-05-03 21:59] VITALS: RESP 16
[2018-05-04] MEDS: IBUPROFEN 800 MG TABLET PO SCH ×3 (00:37→09:35)
[2018-05-04] MEDS: HYDROCODONE/APAP 5mg/325mg TABLET PO PRN ×2 (05:19→09:34)
[2018-05-04 09:21] VITALS: BP 112/65; PULSE 96; TEMP 98; O2SAT 96
[2018-05-04] MEDS: DOCUSATE CALCIUM 240 MG CAPSULE PO SCH (09:34)
[2018-05-04] MEDS: SIMETHICONE 80 MG CHEWABLE TABLET PO SCH (09:35)
== END 2018-05-04 09:57 | disposition home or self-care (01) | DRG 766 ==
LOC: MC 10:06
PROVIDERS: ADMIT Obstetrics & Gynecology; ATTEND Obstetrics & Gynecology